=== PATIENT | female | born 1970 | race Caucasian/White ===

== ENCOUNTER 2022-07-09 09:58 | Day surgery (SDC) | payer OTHER ==
[~2022-07-09] VITALS: Ht 152.4 cm; Wt 90.7 kg
[2022-07-09] MEDS ORDERED: fentaNYL citrate 0.05 MG/ML VIAL ONE (11:10)
[2022-07-09] MEDS ORDERED: MIDAZOLAM 2 MG/2 ML VIAL ONE ×2 (11:10)
[2022-07-09] MEDS ORDERED: fentaNYL citrate 0.05 MG/ML VIAL IVP ONE (12:15)
[2022-07-09] MEDS ORDERED: MIDAZOLAM 2 MG/2 ML VIAL IVP ONE (12:15)
== END 2022-07-09 12:45 | disposition home or self-care (01) ==
LOC: MOR 09:58 → MMU 09:59 → MOR 12:45
PROVIDERS: ATTEND Internal Medicine Gastroenterology
DX: Z12.11 Encounter for screening for malignant neoplasm of colon (principal); K29.70 Gastritis, unspecified, without bleeding; F41.9 Anxiety disorder, unspecified; F32.A Depression, unspecified; K21.9 Gastro-esophageal reflux disease without esophagitis; K76.0 Fatty (change of) liver, not elsewhere classified; Z79.899 Other long term (current) drug therapy; Z20.822 Contact with and (suspected) exposure to COVID-19
CPT/HCPCS: 36415; 43239; 45378; 86677; 87426; J2250; J3010